=== PATIENT | female | born 1960 | race Caucasian/White ===

== ENCOUNTER → 2018-07-17 | Outpatient (CLI) | payer OTHER, MEDICAID ==
[2018-07-17] VITALS (8 sets, daily range): BP systolic 135–178; BP diastolic 78–115
[~2018-07-17] VITALS: Ht 124.5 cm; Wt 49.4 kg
[~2018-07-17] MED LIST: ATORVASTATIN CA40 MG PO; CARVEDILOL12.5 MG PO; CYMBALTA60 MG PO; DIGOXIN125 MCG PO; LANTUS100 UNIT/M SUBQ; LASIX 20 MG TAB20 MG PO; LISINOPRIL10 MG PO; LOPRESSOR50 PO; NEURONTIN600 MG PO; NORCO 5-325 TA1 EACH; PLAVIX 75 MG TA75 M1 PO; PROTONIX40 M1 PO; TRAMADOL 50 MG50 MG PO; TRICOR145 MG PO
[2018-07-17 09:43] LABS: POTASSIUM 4.1 mmol/L (3.5-5.1)
[2018-07-17 09:55] LABS: APTT 23.8 Seconds (25.0-31.3)
[2018-07-17 10:26] LABS: HEMATOCRIT 35.8 % (37.0-47.0); HEMOGLOBIN 11.9 gm/dL (12.0-15.0); MCH 26.8 pg (26.0-34.0); MCHC 33.1 g/dL (28.0-37.0); MCV 80.9 fL (80.0-100.0); MPV 6.4 fl. (7.2-11.1); RBC 4.43 mil/uL (4.20-5.00); RDW-CV 15.9 % (10.5-14.5); WBC 10.1 thou/uL (4.0-11.0)
--- NOTE | 2018-07-17 13:39 | H ---
[place] [address] HISTORY AND PHYSICAL Name: RAUDEL PAREKH Room: [facility].#: [id number] Admission: 07/17/18 Attend Phys: Taz Wilson MD Discharge: Date of : 62 Report #: [id number] THIS REPORT FOR: //name// CC: Stephane Wilson INDICATION: Admission for ICD placement for primary prevention in patient with ischemic cardiomyopathy. HISTORY OF PRESENT ILLNESS: The patient is a 58-year-old white female with prior history of extensive inferolateral myocardial infarction remotely. By recent evaluation, she was found to have high grade stenosis involving the circumflex and right coronary arteries. Ejection fraction on MRI was 32% despite maximal medical management for her congestive heart failure. In the past, she had an RV thrombus that resolved with warfarin therapy. She is not having angina. She has chronic systolic heart failure without acute exacerbation. Cardiac risk factors include diabetes, hypertension, tobacco use and hyperlipidemia. PAST MEDICAL HISTORY: 1. Coronary artery disease. 2. Ischemic cardiomyopathy. 3. Chronic systolic heart failure. 4. Hypertension. 5. Hyperlipidemia. 6. Myocardial infarction. 7. Chronic tobacco use. 8. Cholecystectomy. 9. Peripheral vascular disease. 10. Previous transmetatarsal amputation of the left. HOME MEDICATIONS: Aspirin 81 mg daily, atorvastatin 40 mg daily, digoxin 125 mcg daily, fenofibrate 145 mg daily, gabapentin 800 mg t.i.d., Levemir 100 units subcutaneously at night, lisinopril 10 mg b.i.d., metoprolol ER 75 mg b.i.d., Protonix 40 mg daily. MEDICATION ALLERGIES: LEVAQUIN, AZITHROMYCIN AND SULFA. SOCIAL HISTORY: The patient denies use of tobacco. She drinks alcohol rarely. FAMILY HISTORY: Father had coronary artery disease. Mother had diabetes and hypertension. REVIEW OF SYSTEMS: [place] [address] HISTORY AND PHYSICAL Name: IZABELLARAUDEL Tammy Room: [facility]#: [id number] Admission: 07/17/18 Attend Phys: Taz Wilson MD Discharge: Date of : 62 Report #: [id number] GENERAL: She denies convulsions, seizures or focal paralysis. In general, there is no unexplained weight loss or fever. RESPIRATORY: She has a cough without production. CARDIOVASCULAR: As outlined above. ENDOCRINE: She has diabetes. No history of thyroid disease. GASTROINTESTINAL: No nausea, vomiting, hematemesis, melena, hematochezia, jaundice, hepatitis. GENITOURINARY: No dysuria or hematuria. HEMATOLOGIC AND LYMPHATIC: No history of anemia. She does have a history of RV clot, no history of cancer. ALLERGY AND IMMUNOLOGIC: She has medical allergies outlined above. ENDOCRINE: She has diabetes. PSYCHIATRIC: No depression or anxiety. MUSCULOSKELETAL: She has arthritis without connective tissue disease. SKIN: No recent rashes, hives or chronic skin conditions. EYES: She wears glasses. No acute visual loss. PHYSICAL EXAMINATION: VITAL SIGNS: Stable. Blood pressure is 138/80, pulse is 82 and regular. GENERAL: This is a thin, small pleasant female in no distress. Mood and affect appropriate. HEENT: The patient is wearing glasses. Extraocular muscles are intact. Mucous membranes are moist. NECK: Shows no jugular venous distention. There are no carotid bruits. CHEST: Reveals clear lung valentin. CARDIAC: Reveals a regular rhythm without gallop or murmur. ABDOMEN: Reveals normal bowel sounds. The abdomen is soft, nontender. EXTREMITIES: Shows no edema. There is amputation of the left forefoot. SKIN: Warm, dry. IMPRESSION AND RECOMMENDATIONS: 1. Ischemic cardiomyopathy, plan for ICD placement for primary prevention. 2. History of RV thrombus. We will proceed with transesophageal echocardiogram prior to ICD placement. 3. Coronary artery disease, presently stable. Continue medications as outlined above. 4. Hyperlipidemia. Continue current regimen including atorvastatin and fenofibrate. 5. Diabetes, treatment per primary physician. <ELECTRONICALLY SIGNED> By: Taz Wilson MD, FACC 07/17/18 1339 [id number] Wilson MD, FACC /nt
--- NOTE | 2018-07-17 13:54 | TEE ---
[facility] [address] [place] [address] TRANSESOPHAGEAL ECHOCARDIOGRAM Name: RAUDEL PAREKH Room: [facility]#: [id number] Admission: 07/17/18 Attend Phys: Taz Wilson, Discharge: Date of : 62 Date of Service: 07/17/18 1354 Report #: [id number] THIS REPORT FOR: //name// APPROVED REPORT Study performed: 07/17/2018 10:24:08 EXAM: Transesophageal Echocardiogram Patient Location: Out-Patient Status: routine BSA: 1.42 HR: 93 bpm BP: 150/91 mmHg Rhythm: NSR Other Information Study Quality: Good Indications Rule out thrombus Echo Enhancing Agent Indication: Rule out Shunt Agent(s) / Amount(s) Used: Agitated Saline 10 cc Procedure After obtaining informed consent, patient underwent transesophageal echo in the [employer]. Type of Sedation : Conscious Sedation Sedation was administered by Katty Horton RN. Sedation start time: 1030 Case end Time: 1044 Sedation was achieved intravenously with: Versed () Fentanyl () Transesophageal probe was inserted and advanced into esophagus without difficulty by Taz Wilson MD, FACC. Echo enhancement indication: R/O Septal defect. Echo enhancement agent administered: Agitated Saline The JAME was performed without complications. Throughout the procedure, the blood pressure, pulse oximetry, cardiac rhythm, and rate were monitored. The patient tolerated the procedure without adverse effects. Recovery from conscious sedation was uneventful and vital signs were stable. Left Ventricle [address] [address] TRANSESOPHAGEAL ECHOCARDIOGRAM Name: RAUDEL PAREKH Room: [facility]#: [id number] Admission: 07/17/18 Attend Phys: Taz Wilson, Discharge: Date of : 62 Date of Service: 07/17/18 1354 Report #: [id number] The left ventricle is normal size. Akinesis of the inferior thru lateral denton. There is normal left ventricular wall thickness. Left ventricular systolic function is moderate to severely decreased. LVEF is 30-35%. Right Ventricle The right ventricle is normal size. The right ventricular systolic function is normal. Atria No thrombus is visualized in the left atrium or appendage. Interatrial septum is intact without evidence of ASD or PFO. The right atrium size is normal. Aortic Valve The aortic valve is normal in structure. No aortic regurgitation is present. There is no aortic valvular stenosis. Mitral Valve The mitral valve is normal in structure. Moderate mitral regurgitation. No evidence of mitral valve stenosis. Tricuspid Valve The tricuspid valve is normal in structure. There is no tricuspid valve regurgitation noted. Pulmonic Valve The pulmonary valve is normal in structure. There is no pulmonic valvular regurgitation. Great Vessels The aortic root is normal in size. Pericardium There is no pericardial effusion. <Conclusion> The left ventricle is normal size. There is normal left ventricular wall thickness. Left ventricular systolic function is moderate to severely decreased. LVEF is 30-35%. Akinesis of the inferior thru lateral denton. No thrombus is visualized in the [place] [address] TRANSESOPHAGEAL ECHOCARDIOGRAM Name: PAREKHRAUDEL GREER Tammy Room: [facility]#: [id number] Admission: 07/17/18 Attend Phys: Taz Wilson, Discharge: Date of : 62 Date of Service: 07/17/18 1354 Report #: [id number] Interatrial septum is intact without evidence of ASD or PFO. Moderate mitral regurgitation. <ELECTRONICALLY SIGNED> By: Taz Wilson MD, FACC 07/17/18 1354 1354 [id number] Taz Wilson MD, FACC /INF
--- NOTE | 2018-07-24 16:15 | CARD ---
[address] [address] CARDIAC CATH REPORT Name: RAUDEL PAREKH [facility] [id number] Admission: 07/17/18 Attend Phys: Taz Wilson MD Discharge: Date of : 62 Report #: [id number] THIS REPORT FOR: //name// APPROVED REPORT Study performed: 07/17/2018 11:44:46 Patient Status: Out-Patient Room #: Event Personnel: Taz Wilson Resolution Expert, Leora Ojeda RTR Scrub, Hoda [place] RN Sanipractic Physician, Theodore Patel (R) Monitor, Mandy Mckay RN Sanipractic Physician Exam: single-chamber ICD placement Indications: ischemic cardiomyopathy The patient is a 58 year-old female with a history of ischemic cardiomyopathy. Patient Info Last EF%: 32% Date: NYHA Heart Class: II Reason for implant: Primary prevention Intraoperative Conscious Sedation Sedation start time: 12:40 Case end Time: 13:17 Fentanyl 75 mcg Versed 2 mg Implanted Devices: Biotronik Inventr 7 VRT DX pro-MRI, model #587562, serial #[id number] single-chamber ICD generator Biotronik Plexa ProMRI DF1 DX 65/15, model #836928, serial #[id number] ventricular pacing ICD lead Procedure After informed consent was obtained the patient was brought to the interventional radiology lab. The area of the left chest was prepped and draped in sterile fashion. Local anesthesia was achieved with 1% lidocaine. Next after an initial incision was made a device pocket was formed over the left pectoralis muscle using electrocautery and blunt dissection. The left subclavian vein was then accessed using a micropuncture kit. Ultimately a safety J guidewire was advanced to the level of the right atrium under fluoroscopic guidance. An 8 Ukrainian tear-away introducer was advanced over the guidewire. The dilator and guidewire were removed and a pacing ICD lead was advanced to a secure position within the right ventricular apex. The lead was actively fixed. Thresholds were checked [place] [address] CARDIAC CATH REPORT Name: RAUDEL PAREKH Room: [facility]#: [id number] Admission: 07/17/18 Attend Phys: Taz Wilson MD Discharge: Date of : 62 Report #: [id number]. The lead was then secured within the pocket using the designated cuff and interrupted stitches of 0 silk suture. The device pocket was then flushed with antibiotic solution. Next a single-chamber pacing ICD generator was attached to the lead. The generator and redundant lead were then placed within the device pocket. The deep tissues were then closed with interrupted stitches of 2-0 Vicryl. The skin incision was then closed with a single subcuticular stitch of 4-0 Vicryl. Several Steri-Strips were placed across the incision. A sterile Telfa dressing was then covered with a Tegaderm. The patient tolerated she is well without complication. Complications The patient tolerated the procedure well and there were no complications associated with the procedure. Findings Sensed R-wave 6.0 mV. RV pacing threshold 0.6 V at 0.40 ms. RV pacing impedance 824 ohms. Shocking impedance 84 ohms. Charge time 10 seconds. VT 1 zone 154 bpm. VT 2 zone 171 bpm. VF zone 222 bpm. VT 1 therapy monitor. VT 2 therapies anti-tach pacing 6 followed by 45 J shock times eight. VF therapies anti-tach pacing times one followed by 45 J shock times eight. Pacing mode VVI. Lower rate 40 bpm. Conclusion 1. Ischemic cardiomyopathy 2. Successful implantation of a single-chamber ICD for primary prevention Recommendations 1. Follow-up site check in one week 2. Follow-up device check in one to 2 months <ELECTRONICALLY SIGNED> By: Taz Wilson MD, [facility] 07/24/18 1615 1615 [id number] Wilson MD, FACC /INF
== END ==
LOC: M.CL 08:35
PROVIDERS: Internal Medicine Cardiovascular Disease
DX: Z45.02 Encounter for adjustment and management of automatic implantable cardiac defibrillator (principal); I34.0 Nonrheumatic mitral (valve) insufficiency; I11.0 Hypertensive heart disease with heart failure; I50.22 Chronic systolic (congestive) heart failure; I25.10 Atherosclerotic heart disease of native coronary artery without angina pectoris; E11.9 Type 2 diabetes mellitus without complications; E78.5 Hyperlipidemia, unspecified; I25.2 Old myocardial infarction; I73.9 Peripheral vascular disease, unspecified; F17.210 Nicotine dependence, cigarettes, uncomplicated; Z98.890 Other specified postprocedural states; Z90.49 Acquired absence of other specified parts of digestive tract; Z79.82 Long term (current) use of aspirin; Z79.899 Other long term (current) drug therapy; Z88.2 Allergy status to sulfonamides; Z88.8 Allergy status to other drugs, medicaments and biological substances; Z82.49 Family history of ischemic heart disease and other diseases of the circulatory system; Z83.3 Family history of diabetes mellitus